=== PATIENT | female | born 1965 | race Caucasian/White ===

== ENCOUNTER 2022-03-03 15:06 | Emergency (ER) | payer OTHER, SELFPAY ==
--- NOTE | ~2022-03-03 | XR_ITS ---
EXAMINATION: XR chest 1V portable Exam Date/Time: 03/03/2022 19:55 [facility] HISTORY: dyspnea Comparison: None available. RESULT: Lines, tubes, and devices: None. Lungs and pleura: Bilateral reticular opacities with indistinct vessels. Cardiomediastinal silhouette: Stable. Other: No acute osseous or upper abdominal finding. IMPRESSION: Pulmonary opacities may represent interstitial edema or respiratory bronchiolitis. Reviewed, dictated and finalized at location [facility] IMPRESSION: Pulmonary opacities may represent interstitial edema or respiratory bronchiolit is.
[2022-03-03 15:29] VITALS: BP 169/86; PULSE 76; RESP 16; TEMP 36.8; O2SAT 99
--- NOTE | 2022-03-03 15:59 | PC.NURSE ---
pt leaving waiting to go outside then comes back to ED
[2022-03-03 16:40] LABS: Add Urine Microscopic? YES; Appearance Urine Clear (Clear); Basophils Percent Auto 0.2 % (0.2-1.2); Bilirubin Urine Negative (Negative); Blood Urine 1+ (Negative); Color Urine Yellow (Yellow); Eosinophils Absolute Auto 0.1 K/mm3 (0-0.3); Eosinophils Percent Auto 1.3 % (0-4.4); Glucose Urine UA Negative (Negative); Hematocrit 38.2 % (37.0-47.0); Hemoglobin 12.2 g/dL (12.0-15.0); Immature Granulocyte Absolute 0.04 K/mm3 (0.00-0.031); Immature Granulocyte Percent A 0.4 % (0-0.5); Ketones Urine Negative (Negative); Leukocyte Esterase Ur Negative LEU/UL (Negative); Lymphocytes Absolute Auto 1.21 K/mm3 (0.9-3.2); Lymphocytes Percent Auto 11.3 % (18.3-44.2); Mean Corpuscular HGB Conc 31.9 g/dl (32-36); Mean Corpuscular Hemoglobin 29.1 pg (26-34); Mean Corpuscular Volume 91.2 fl (80-100); Mean Platelet Volume 9.7 fl (7.4-10.4); Monocytes Absolute Auto 0.8 K/mm3 (0.1-0.6); Monocytes Percent Auto 7.1 % (2.6-8.5); Neutrophils Absolute Auto 8.6 K/mm3 (1.3-6.7); Neutrophils Percent Auto 79.7 % (45.5-73.1); Nitrate Urine Negative (Negative); Platelet Count Result 401 k/mm3 (150-375); Protein Urine 1+ mg/dL (Negative); Red Blood Count 4.19 M/mm3 (4.2-5.4); Red Cell Distribution Width 17.4 % (11.5-14.5); Urobilinogen Urine 0.2 mg/dL (<2.0); White Blood Count 10.7 K/mm3 (4.5-10.0)
[2022-03-03 16:50] LABS: Mucus Urine Rare /lpf; Squamous Epithelial Cell Urine Rare /hpf (Few)
[2022-03-03 16:53] LABS: Alanine Aminotransferase 191 U/L (6-35); Albumin Level 4.2 g/dL (3.5-5.1); Alkaline Phosphatase 97 U/L (38-126); Anion Gap 5 mmol/L (8-16); Aspartate Amino Transferase 154 U/L (14-36); Bilirubin,Total 0.4 mg/dL (0.2-1.3); Blood Urea Nitrogen 13 mg/dL (7-17); Calcium 9.4 mg/dL (8.4-10.2); Carbon Dioxide 32 mmol/L (22-30); Chloride 101 mmol/L (98-107); Estimated CRCL calculation 131 ml/min; Estimated Glomerular Filt Rate > 60; Glucose 113 mg/dL (65-110); Lipase 71 U/L (23-300); Potassium 3.6 mmol/L (3.4-5.0); Sodium 138 mmol/L (137-145)
--- NOTE | 2022-03-03 16:58 | PC.NURSE ---
pt walked out of ED again
[2022-03-03 17:22] LABS: Influenza A QL RT-PCR Negative (Negative); Influenza B QL RT-PCR Negative (Negative); SARS-CoV-2 RNA PCR Negative
--- NOTE | 2022-03-03 19:59 | ED.GENADULT ---
HPI - General Adult General Chief complaint: Unspecified Stated complaint: BODY ACHES,COUGH Time Seen by Provider: 03/03/22 19:08 History of Present Illness HPI narrative: This is a 56-year-old female with chronic pain presenting to ED with 2 days of back pain. Patient said that her pain started yesterday in her mid back, it is a tightness, that is nonradiating, 8 out 10 intensity and constant. She states it is getting worse. Patient has had back pain like this multiple times in the past although this is worse in intensity. She says that the pain is both improved and worsened by movement because she cannot get comfortable. He has taken ibuprofen with no affect. Patient does report some nausea without vomiting although she says that is because she has not eaten. She also reports some diarrhea. She denies fever, chest pain difficulty breathing, abdominal pain. Patient denies trauma, fever, history of IV drug abuse, known cancer, urinary retention, bowel incontinence or saddle anesthesia. Related Data Allergies Allergy/AdvReac Type Severity Reaction Status Date / Time cefaclor Allergy Unknown Verified 06/11/21 15:10 [facility] Past Medical History Medical History Arthritis Hepatitis C High cholesterol Hypertension Normal colonoscopy Surgical History Surgical History H/O breast surgery History of cryosurgery Knee joint replacement status Status post right knee replacement Family History Family History Other Arthritis Lung cancer Social History Social History Smoking packs per day: 0.5 Smoking cigarettes per day: 10.0 Smoking status: Current every day smoker Tobacco type: cigarettes Alcohol intake: current Substance use: never Substance use type: does not use Gender identity (if verbalized by the patient): Female Exam Narrative: APPEARANCE: Patient is tearful Head: atraumatic. EYES: EOMI, NOSE: Atraumatic NECK: Trachea midline RESPIRATORY: No increased rate of breathing, clear to auscultation bilaterally, no increased work of breathing CARDIOVASCULAR: RRR, no peripheral edema ABDOMINAL: distended but nontender with no guarding or rebound MUSCULOSKELETAl: tenderness and tenseness of the paraspinal muscles in the T and L-spine distribution. No CVA tenderness. Straight-leg negative bilaterally. NEURO: Alert. Moving 4/4 extremities SKIN:: Warm, dry. Normal color PSYCHIATRIC: Normal affect Course Vital Signs Vital signs: Vital Signs Temperature 98.3 F 03/03/22 15:29 Pulse Rate 76 03/03/22 15:29 Respiratory Rate 16 03/03/22 15:29 Blood Pressure 169/86 H 03/03/22 15:29 Pulse Oximetry 99 03/03/22 15:29 Oxygen Delivery Room Air 03/03/22 15:29 Temperature 98.3 F 03/03/22 15:29 Pulse Rate 76 03/03/22 15:29 Respiratory Rate 16 03/03/22 15:29 Blood Pressure 169/86 H 03/03/22 15:29 Pulse Oximetry 99 03/03/22 15:29 Oxygen Delivery Room Air 03/03/22 15:29 Medical Decision Making MDM Narrative Medical decision making narrative: Presentation: 56-year-old female with chronic pain presenting to ED with back pain, nausea and diarrhea. DDX includes but is not limited to: Viral syndrome, acute on chronic pain, urinary tract infection/pyelo Co-morbidities complicating care: chronic pain, hepatitis C, liver cirrhosis, arthritis External Chart Review: none Hx from independent Sources: none Discussion of Management:none Independent interpretation of studies: CBC showed an elevated white count of 10.7 of unknown etiology of significance. metabolic panel was within acceptable limits. There were mild elevations in ALT and AST which are consistent with her hepatitis C. Urinalysis was negative for nitrates and leuk esterase but had 3-5 red
[2022-03-03] MEDS: IBUPROFEN 400 MG TABLET 800 MG PO (20:34)
[2022-03-03] MEDS: ACETAMINOPHEN 500 MG TABLET 1000 MG PO (20:34)
[2022-03-03] MEDS: methocarbamoL 750 MG TABLET 1500 MG PO (20:35)
[2022-03-03 20:38] VITALS: BP 154/74; PULSE 84; RESP 16; O2SAT 97
--- NOTE | 2022-03-03 20:40 | PC.NURSE ---
patient refused transdermal patch
== END 2022-03-03 20:43 | disposition left against medical advice (07) ==
PROVIDERS: Emergency Medicine; Emergency Provider Emergency Medicine; PCP Nurse Practitioner Family
DX: N39.0 Urinary tract infection, site not specified (principal); M54.6 Pain in thoracic spine; G89.29 Other chronic pain; E78.00 Pure hypercholesterolemia, unspecified; I10 Essential (primary) hypertension; B19.20 Unspecified viral hepatitis C without hepatic coma; K74.60 Unspecified cirrhosis of liver; M19.90 Unspecified osteoarthritis, unspecified site; Z96.651 Presence of right artificial knee joint; F17.210 Nicotine dependence, cigarettes, uncomplicated
CPT/HCPCS: 36415; 71045; 80053; 81001; 83690; 85025; 87636; 99283; A9270

== ENCOUNTER 2022-07-04 11:00 | Outpatient (RCR) | payer MEDICARE, OTHER, MEDICAID, SELFPAY ==
--- NOTE | 2022-06-03 10:31 | PCPTNOTE ---
Patient did not show up for scheduled Evaluation this date.
--- NOTE | 2022-06-06 18:26 | PTOPEVAL1 ---
Assessment and note entered by Nick Parrish, PT Evaluation Information Assessment Status Evaluation Diagnosis spondylosis with radiculopathy, lumbar region Onset Chronic Subjective Information Patient reports she has a lot of issues with her back, joints, wrist, L Achilles. She reports having radiating pain down the RLE and restless leg syndrome. Patient wants to go back to the L foot never recovering from a surgery in July of last year 2021, but telling her we are here to focus on the back. She reports having a fall last week where she was wedged in between furniture for a prolonged period of time. Has trouble with sleeping and walking and about every activity. States she is living with family, for 10 years, but not from her and her three sons are drug addicts. No information about family was asked she volunteered it. Reported Pain Level Pain Score 4: Self Report Assessment PT Clinical Summary Maritza is a 56 year old female coming into the clinic with a diagnosis of spondylosis with radiculopathy, lumbar region. Also brings in a script from another doctor to look at the L Achilles. Told patient she can cancel this appointment or start with the back. She elects to start with the back. She has decreased lumbar and thoracic movement in the spine, weakness in the hip extension and very tender paraspinals in the upper lumbar and lower thoracic area. Physical therapy will start with manual and modalities for pain control and then work on strengthening and stretching, Prognosis will be slow secondary to a multiple of other areas of concern on the body for the patient. Plan of Care Interventions Electrical Stimulation,Gait Training,Hot Pack/Cold Pack,Manual Therapy,Mechanical Traction,Neuro Re- education,Patient/Caregiver Education,Therapeutic Activities,Therapeutic Exercise,Ultrasound Other Interventions taping, cupping, IASTM PT Services Indicated Yes Treatment Frequency and 1-2x/wk for 4 weeks Duration These treatments will address the objective and functional deficits as defined above. The patient will be advanced safely and appropriately in order for the patient to progress towards his/her prior level of function. Additional exercises will be introduced and as well as a comprehensive home exercise program upon discharge, if needed, ?to ensure carryover of functional gains achieved in the clinic. This treatment plan has been reviewed and agreement upon by the patient.
--- NOTE | 2022-06-18 11:56 | PCPTNOTE ---
Patient no call/no showed her appointment today.
--- NOTE | 2022-06-24 14:18 | PCPTNOTE ---
Appointment this date was cancelled due to insurance authorization problems. Pt is bringing insurance information in before next visit, to get the authorization straightened out.
--- NOTE | 2022-06-27 13:44 | PCPTNOTE ---
Pt cancelled due to car issues.
--- NOTE | 2022-07-04 11:35 | PTOPDC ---
Assessment and note entered by Nick Parrish, PT Evaluation Information Assessment Status Discharge Diagnosis Spondylosis with radiculopathy, lumbar region Onset chronic Subjective Information Patient is a contrarian stating in one sentence the back is feeling better and then saying she does not know why she does therapy, because it is not going to get any better. States the radiating symptoms are better in the legs, but has increased numbness in her bottom. Reports no troubles with incontinence. Reported Pain Level Pain Score 3: Self Report Assessment PT Clinical Summary Maritza is a 57 year old female coming into the clinic with a diagnosis of spondylosis with radiculopathy in the lumbar region. She was evaluated on 06/06/22 and attended 5 sessions with 3 cancelations or no shows. She met her pain, strength, and 2/3 of her range of motion also having improvement in radiating symptoms. Discharged from physical therapy to focus on her L foot. Plan of Care PT Services Indicated No
== END 2022-07-04 13:43 | disposition home or self-care (01) ==
LOC: ANHPT 11:00
PROVIDERS: PCP Nurse Practitioner Family; Visit Provider Nurse Practitioner Adult Health
DX: M47.26 Other spondylosis with radiculopathy, lumbar region (principal)
CPT/HCPCS: 97110; 97140; 97161; 99199

== ENCOUNTER 2022-07-05 09:15 | Outpatient (RCR) | payer MEDICARE, SELFPAY ==
--- NOTE | 2022-07-05 11:47 | PTOPEVAL1 ---
Assessment and note entered by Maylin Miller, PT Evaluation Information Assessment Status Evaluation Diagnosis L achilles tendonitis Onset Oct 2021 Subjective Information in July 2021- had L calcaneal spur removed; did OK until about 3 months after surgery, started having more pain; pain worse as started walking and doing more; standing/walking 10 minutes at most, then have to sit due to pain does not work outside of home, on medical disability; Reported Pain Level Pain Score Self Report Additional Pain Score Comments pain range in the past week of 3-8/10; L heel- burning, ripping, stretching- lateral heel and distal - lateral achilles tendon; Assessment PT Clinical Summary Maritza has the diagnosis of L achilles tendonitis, s/p surgery for calaneal bone spur removal. She reports pain in heel, with decreased standing and walking tolerance. And pain over lateral forefoot and base of big toe. With the evaluation, her L ankle and toe active ROM is WNL; pain increase with active: toe flexion ankle DF, inversion and eversion motions; pain over calcaneal scar and lateral heel; decreased strength with standing B PF and single leg standing. Skilled PT services are indicated for modalities to decrease pain and therapeutic exercises to increase strength and education for home exercises Plan of Care Interventions Electrical Stimulation,Hot Pack/Cold Pack,Manual Therapy,Neuro Re-education,Patient/Caregiver Education,Therapeutic Activities,Therapeutic Exercise,Ultrasound,Other Other Interventions fluidotherapy,IASTM, taping PT Services Indicated Yes Treatment Frequency and 2x/wk for 5 weeks Duration These treatments will address the objective and functional deficits as defined above. The patient will be advanced safely and appropriately in order for the patient to progress towards his/her prior level of function. Additional exercises will be introduced and as well as a comprehensive home exercise program upon discharge, if needed, ?to ensure carryover of functional gains achieved in the clinic. This treatment plan has been reviewed and agreement upon by the patient.
--- NOTE | 2022-07-17 11:56 | PCPTNOTE ---
Patient called to cancel appointment for today, she is in too much pain and plans to go to her MD office.
--- NOTE | 2022-07-19 10:22 | PCPTNOTE ---
Patient called & cancelled scheduled appointment this date due to getting second opinion ; Pt is continuing to have trouble with her heel.
--- NOTE | 2022-07-23 10:47 | PCPTNOTE ---
Patient did not show up for scheduled appointment this date. Called and left voicemail about missed appointment. Informed Pt to call if she intended to cancel all future appointments due to Pt cancelling last week to get a second opinion on her foot. This is Pt's first N/S.
--- NOTE | 2022-07-25 11:00 | PCPTNOTE ---
Patient did not show up for scheduled appointment this date. Called and left voicemail about missed appointment. Informed Pt to please call if she was wanting to cancel all of her appointments due to getting a second opinion. Also, informed Pt if she No-Shows her next appointment on 07/30/22 @ 11:15am, we will be cancelling her appointments in accordance with our No-show policy.
--- NOTE | 2022-07-30 11:44 | PCPTNOTE ---
Called and spoke to patient for No-show today and she stated that she still had not been able to get the second opinion on her foot. She says that she still has a few more weeks to wait but does not think that therapy will help at this point. Told patient that we would go ahead and discharge at this time and asked patient to follow-up if further orders were received after follow-up.
--- NOTE | 2022-08-01 13:16 | PTOPDC ---
Assessment and note entered by Maylin Miller, PT Evaluation Information Assessment Status Discharge - Pt Not Presen Diagnosis L achilles tendonitis Onset Oct 2021 Assessment PT Clinical Summary Ms. Zuleta received the PT evaluation and did not return for treatment. She called and canceled 2 and did not show for 2 scheduled appointments. The goals were not addressed. Discharge PT services. Plan of Care PT Services Indicated No
== END 2022-08-02 09:21 | disposition home or self-care (01) ==
LOC: ANHPT 09:15
PROVIDERS: PCP Nurse Practitioner Family; Visit Provider Podiatrist Foot & Ankle Surgery
DX: M76.62 Achilles tendinitis, left leg (principal)
CPT/HCPCS: 97161; 99199